=== PATIENT | male | born 1995 | race Caucasian/White ===

== ENCOUNTER 2018-01-17 13:46 | Emergency (ER) | payer OTHER, SELFPAY ==
--- NOTE | 2018-01-17 14:44 | RAD ---
LEFT HAND FOURTH DIGIT 3 VIEWS: Date: 01/17/18 HISTORY: Crush injury. Swelling. COMPARISON: None. FINDINGS: There is soft tissue swelling. No fracture. No cortical irregularity or periosteal reaction. IMPRESSION: No fracture. POS: [facility]
== END 2018-01-17 15:10 | disposition home or self-care (01) ==
LOC: ERS 13:46
DX: S60.142A Contusion of left ring finger with damage to nail, initial encounter (principal); W23.0XXA Caught, crushed, jammed, or pinched between moving objects, initial encounter